=== PATIENT | female | born 1995 | race Caucasian/White ===

== ENCOUNTER 2016-08-21 21:00 | Emergency (ER) | payer OTHER ==
[2016-08-21 21:25] VITALS: BP 122/85; PULSE 109; TEMP 97.7; BMI 31.9
[2016-08-21] MEDS ORDERED: SODIUM CHLORIDE 1,000 ML IV STA (21:45)
[2016-08-21] MEDS ORDERED: OXYCODONE/APAP 5/325MG COMBO TABLET PO ONE ×2 (21:45→22:46)
--- NOTE | 2016-08-21 21:46 | PDOC ---
History of Present Illness - General History Source: Patient, Family Exam Limitations: No Limitations - History of Present Illness Initial Comments: 08/21/16 21:53 The patient is a 20 year old female with no significant past medical history who presents to the emergency department today complaining of shakes, body aches , hot and cold temperature swings, blurred vision, and cough. The patient states that she had a recent chest X-ray and was diagnosed with right sided pneumonia yesterday. The patient states that she has been shaking constantly for 4 days. The patient states that she begins to have a coughing bout any time she attempts to talk. The patient presents for further evaluation. The patient denies chest pain, or shortness of breath. The patient denies nausea, vomiting, and diarrhea. <Yasmany Perez - Last Filed: 08/21/16 21:53> <Neal Cooley - Last Filed: 08/21/16 22:26> - General Chief Complaint: Respiratory Stated Complaint: PNEUMONIA Time Seen by Provider: 08/21/16 21:43 Past History <Yasmany Perez - Last Filed: 08/21/16 21:53> - Immunization History Immunization Up to Date: Yes - Psycho/Social/Smoking Cessation Hx Anxiety: No Suicidal Ideation: No Smoking History: Never smoked Hx Alcohol Use: No Drug/Substance Use Hx: No Substance Use Type: None <Neal Cooley - Last Filed: 08/21/16 22:26> - Past Medical History Allergies/Adverse Reactions: Allergies Allergy/AdvReac Type Severity Reaction Status Date / Time No Known Allergies Allergy Verified 08/21/16 21:07 Home Medications: Ambulatory Orders Albuterol Sulfate Inhaler - [Ventolin Hfa Inhaler -] 2 inh PO Q4H PRN 08/21/16 Bupropion HCl [Wellbutrin Xl -] 450 mg PO DAILY 08/21/16 Clarithromycin [Biaxin -] 500 mg PO BID 08/21/16 Oxycodone HCl/Acetaminophen [Percocet 5-325 mg Tablet] 1 tab PO Q6H #20 tablet MDD 5 08/21/16 Prednisone PO DAILY 08/21/16 Review of Systems - Review of Systems Able to Perform ROS?: Yes Comments:: 08/21/16 21:54 GENERAL/CONSTITUTIONAL: (+)Chills, hot and cold temperature swings, shakes, weakness. HEAD, EYES, EARS, NOSE AND THROAT: (+)Blurred vision. No ear pain or discharge. No sore throat. CARDIOVASCULAR: No chest pain or shortness of breath. RESPIRATORY: (+) cough, wheezing, or hemoptysis. GASTROINTESTINAL: No nausea, vomiting, diarrhea or constipation. GENITOURINARY: No dysuria, frequency, or change in urination. MUSCULOSKELETAL: No joint or muscle swelling or pain. No neck or back pain. SKIN: No rash NEUROLOGIC: No headache, vertigo, loss of consciousness, or change in strength/ sensation. ENDOCRINE: No increased thirst. No abnormal weight change. HEMATOLOGIC/LYMPHATIC: No anemia, easy bleeding, or history of blood clots. ALLERGIC/IMMUNOLOGIC: No hives or skin allergy. <Yasmany Perez - Last Filed: 08/21/16 21:53> *Physical Exam - Vital Signs Last Vital Signs Temp Pulse Resp BP Pulse Ox 97.7 F 109 H 21 122/85 94 L 08/21/16 21:06 08/21/16 21:06 08/21/16 21:06 08/21/16 21:06 08/21/16 21:06 - Physical Exam Comments: 08/21/16 21:55 GENERAL: Awake, alert, and fully oriented, in no acute distress HEAD: No signs of trauma EYES: PERRLA, EOMI, sclera anicteric, conjunctiva clear ENT: Auricles normal inspection, hearing grossly normal, nares patent, oropharynx clear without exudates. Moist mucosa NECK: Normal ROM, supple, no lymphadenopathy, JVD, or masses LUNGS: Bronchi in the right base. HEART: Regular rate and rhythm, normal S1 and S2, no murmurs, rubs or gallops ABDOMEN: Soft, nontender, normoactive bowel sounds. No guarding, no rebound. No masses EXTREMITIES: Normal range of motion, no edema. No clubbing or cyanosis. No cords, erythema, or tenderness NEUROLOGICAL: Cranial nerves II through XII grossly intact. Normal speech, normal gait SKIN: Warm, Dry, normal turgor, no rashes or lesions noted. <Yasmany Perez - Last Filed: 08/21/16 21:53> - Vital Signs Last Vital Signs Temp Pulse Resp BP Pulse Ox 97.7 F 109 H 21 122/85 94 L 08/21/16 21:06 08/21/16 21:06 08/21/16 21:06 08/21/16 21:06 08/21/16 21:06 <Neal Cooley - Last Filed: 08/21/16 22:26> ED Treatment Course - Medications Given in the ED: ED Medications Discontinued Medications Generic Name Dose Route Start Last Admin Trade Name Giacomo PRN Reason Stop Dose Admin Oxycodone/Acetaminophen 1 combo 08/21/16 21:45 08/21/16 21:51 Percocet 5/325 - PO 08/21/16 21:46 1 combo ONCE ONE Administration <Yasmany Perez - Last Filed: 08/21/16 21:53> Medical Decision Making - Medical Decision Making 08/21/16 21:56 MDM: The patient will receive 1 liter of fluids with 1 percocet and be sent home with a percocet prescriptions for body aches. <Yasmany Perez - Last Filed: 08/21/16 21:53> *DC/Admit/Observation/Transfer - Attestations Scribe Attestion: 08/21/16 21:58 Documentation prepared by Yasmany Perez, acting as medical data analyst for Neal Cooley MD. <Yasmany Perez - Last Filed: 08/21/16 21:53> - Discharge Dispostion Admit: No - Attestations Physician Attestion: 08/21/16 21:44 I, Dr. Neal Cooley, attest that this document has been prepared under my direction and personally reviewed by me in its entirety. I further attest, that it accurately reflects all work, treatment, procedures and medical decision -making performed by me. <Neal Cooley - Last Filed: 08/21/16 22:26> Diagnosis at time of Disposition: Pneumonia Qualifiers: Aspiration pneumonia type: unspecified Laterality: left Lung location: lower lobe of lung - Discharge Dispostion Disposition: HOME Condition at time of disposition: Good - Prescriptions Prescriptions: Oxycodone HCl/Acetaminophen [Percocet 5-325 mg Tablet] 1 tab PO Q6H #20 tablet MDD 5 - Referrals Referrals: Abebe Burrows MD [Primary Care Provider] - - Patient Instructions Printed Discharge Instructions: DI for Pneumonia -- Adult Additional Instructions: Amy- You probably won't feel good until this weekend. You are on all the right medicines. Follow up with your doctor. Return to us if any problems. Best- Dr. Neal Cooley - Post Discharge Activity Work/School Note: Back to School
[2016-08-21] MEDS ORDERED: OXYCODONE/APAP 5/325MG COMBO TABLET ONE ×2 (21:48→22:49)
== END 2016-08-21 22:49 | disposition home or self-care (01) ==
LOC: FER 21:00
PROC: 3E0337Z Introduction of Electrolytic and Water Balance Substance into Peripheral Vein, Percutaneous Approach (ICD-10-PCS; principal; 2016-08-21)
DX: J18.9 Pneumonia, unspecified organism (principal)
CPT/HCPCS: 99282-25

== ENCOUNTER 2017-03-22 19:22 | Emergency (ER) | payer OTHER ==
--- NOTE | 2017-03-22 19:25 | PDOC ---
History of Present Illness - General History Source: Patient Exam Limitations: No Limitations - History of Present Illness Initial Comments: 03/22/17 20:07 The patient is an otherwise healthy 21 year old female who presents to the ED with complaints of abdominal pain since yesterday. Patient reports she woke up with upper quadrant pain yesterday morning. She reports the upper quadrant pain is a 7/10, constant, non radiating, and a dull-like sensation. She states she ate pasta the night before, but denies eating any new foods. Patient denies similar symptoms in the past. Denies recent travel. Denies nausea , vomiting, or diarrhea. Denies fever or chills. Denies chest pain or shortness of breath. PAST MEDICAL HISTORY: no significant history PAST SURGICAL HISTORY: no significant history FAMILY HISTORY: Mother has a history of gallbladder stones SOCIAL HISTORY: Pt lives with family and is employed. MEDICATIONS: reviewed ALLERGIES: As per nursing notes General: No fevers or chills, no weakness, no weight loss HEENT: No change in vision. No sore throat,. No ear pain CardioVascular: No chest pain or shortness of breath Respiratory:No cough, or wheezing. Gastrointestinal: + abdominal pain. no nausea, vomiting, diarrhea or constipation, No rectal bleeding Genitourinary: No dysuria, hematuria, or frequency Musculoskeletal: No joint or muscle pain or swelling Neurologic: No headache, vertigo, dizziness or loss of consciousness Psychiatric: nor depression Skin: No rashes or easy bruising Endocrine: no increased thirst or abnormal weight change Allergic: no skin or latex allergy All other systems reviewed and normal General: Well-nourished well-developed individual, no acute distress HEENT: Normal, tonsils normal, no erythema or exudate Neck: Supple, no meningeal signs, no lymphadenopathy Eyes::Pupils equal reactive and round, extraocular motion intact Chest: Nontender to palpation Cardiac: S1-S2 normal, regular rate and rhythm, no murmurs rubs or gallops Respiratory: Lungs clear to auscultation bilateral Abdomen: + mild to moderate epigastric and right upper quadrant tenderness, no boudreaux's sign. Soft, nondistended, normal bowel sounds, no guarding or rebound. Extremities: Warm, dry, no cyanosis, clubbing, or edema Skin: No rashes Neuro: Alert and oriented x3, nonfocal exam, grossly intact, normal gait Psych: Normal mood and affect <Christian Pak - Last Filed: 03/22/17 20:07> - General History Source: Patient Exam Limitations: No Limitations - History of Present Illness Initial Comments: 03/22/17 19:59 A portion of this note was documented by scribe services under my direction. I have reviewed the details of the note, within reason, and agree with the documentation. The case summary and management plan written by me. Medical decision making: This is a 21-year-old female comes in complaining of right upper quadrant and epigastric pain. Patient has a family history of gallstones otherwise denies history of gallstones herself but has never had a ultrasound. Patient denies any other associated symptoms of nausea vomiting diarrhea fever chills or similar pain in the past Will obtain CBC, comp, gallbladder ultrasound. Patient will given Pepcid and Toradol for the discomfort Will reassess 03/22/17 21:11 Reevaluation patient's symptoms are improved post Pepcid and Toradol. Ultrasound of patient's gallbladder was negative for stones or any acute pathology Patient's blood work came back normal Assessment and plan: This is a 21-year-old female with right upper quadrant/ epigastric pain differential includes a gastritis, viral etiology, a calculus gallbladder etiology. Discussed with patient possibly etiologies and the recommended patient take Tums or an antacid and also try to identify what food may be causing her symptoms. Patient does have a primary care doctor she can follow-up with. <Luis Prescott I - Last Filed: 03/22/17 21:14> - General Chief Complaint: Pain Stated Complaint: EPIGASTRIC PAIN AND "GURGLING" Time Seen by Provider: 03/22/17 19:25 Past History <Christian Pak - Last Filed: 03/22/17 20:07> - Immunization History Immunization Up to Date: Yes - Psycho/Social/Smoking Cessation Hx Anxiety: No Suicidal Ideation: No Smoking History: Never smoked Hx Alcohol Use: No Drug/Substance Use Hx: No Substance Use Type: None <Luis Prescott I - Last Filed: 03/22/17 21:14> - Past Medical History Allergies/Adverse Reactions: Allergies Allergy/AdvReac Type Severity Reaction Status Date / Time No Known Allergies Allergy Verified 03/22/17 19:49 Home Medications: Ambulatory Orders Bupropion HCl [Wellbutrin Xl -] 450 mg PO DAILY 08/21/16 *Physical Exam - Vital Signs Last Vital Signs Temp Pulse Resp BP Pulse Ox 98.2 F 88 18 100/77 99 03/22/17 19:24 03/22/17 19:24 03/22/17 19:24 03/22/17 19:24 03/22/17 19:24 <Christian Pak - Last Filed: 03/22/17 20:07> ED Treatment Course - LABORATORY CBC & Chemistry Diagram: 03/22/17 20:15 03/22/17 20:15 <Luis Prescott I - Last Filed: 03/22/17 21:14> *DC/Admit/Observation/Transfer - Attestations Scribe Attestion: 03/22/17 20:07 Documentation prepared by Christian Pak, acting as medical records analyst for Luis Prescott MD <Christian Pak - Last Filed: 03/22/17 20:07> - Discharge Dispostion Admit: No <Luis Presoctt I - Last Filed: 03/22/17 21:14> Diagnosis at time of Disposition: Epigastric pain - Discharge Dispostion Disposition: HOME Condition at time of disposition: Good - Patient Instructions Additional Instructions: Try to identify if there is any food that could be causing discomfort similar to what you're experiencing today and if so avoid those foods. In addition to that take an antacid for discomfort such as tums or Pepcid. Follow-up with your primary care doctor in 2-3 days if you still have persistent symptoms. Return to the emergency department immediately with ANY new, persistent or worsening symptoms. Continue any medications as previously prescribed by your physician.. . Please make sure your doctor reviews the results of your emergency evaluation. Thank you for coming to the Emergency Department today for your care. It was a pleasure to see you today. Please note that your evaluation is INCOMPLETE until you follow-up with your doctor.
[2017-03-22] MEDS ORDERED: FAMOTIDINE 20 MG/50 ML IVPB 50 ML IVPB ONE ×2 (19:52→20:18)
[2017-03-22] MEDS ORDERED: KETOROLAC TROMETHAMINE 30 MG/1 ML VIAL IVPUSH ONE (20:10)
[2017-03-22 20:13] VITALS: BP 100/77; PULSE 88; TEMP 98.2; BMI 27.7
[2017-03-22] MEDS ORDERED: KETOROLAC TROMETHAMINE 30 MG/1 ML VIAL ONE (20:18)
[2017-03-22 20:25] LABS: BASOPHIL 1.4 % (0-2.0); EOSINOPHIL 1.4 % (0-4.5); MCH 31.6 pg (25.7-33.7); MCHC 34.8 g/dl (32.0-36.0); MEAN CELL VOLUME 90.7 fl (80-96); MEAN PLT VOLUME 7.4 fl (7.5-11.1); PLATELET COUNT 222 K/MM3 (134-434); RDW 12.5 % (11.6-15.6); WHITE BLOOD COUNT 7.7 K/mm3 (4.0-10.8)
[2017-03-22 20:45] LABS: ALBUMIN 4.1 g/dl (3.5-5.0); ALK PHOS 46 U/L (32-92); ANION GAP 5 (8-16); BILIRUBIN,TOTAL 0.6 mg/dl (0.2-1.0); CALCIUM 9.2 mg/dl (8.4-10.2); CO2 28 mmol/L (22-28); CREATININE 0.8 mg/dl (0.6-1.3); GLUCOSE,RANDOM 92 mg/dl (74-106); SGOT/AST 12 U/L (10-42); SGPT/ALT 14 U/L (10-40); TOT PROT 6.5 g/dl (6.4-8.3)
== END 2017-03-22 21:19 | disposition home or self-care (01) ==
LOC: FER 19:22
PROC: 3E033GC Introduction of Other Therapeutic Substance into Peripheral Vein, Percutaneous Approach (ICD-10-PCS; principal; 2017-03-22)
PROC: 3E0333Z Introduction of Anti-inflammatory into Peripheral Vein, Percutaneous Approach (ICD-10-PCS; 2017-03-22)
DX: R10.13 Epigastric pain (principal)
CPT/HCPCS: 36415; 76705-TC; 80053; 83690; 85025; 99282-25

== ENCOUNTER 2018-01-02 10:51 | Emergency (ER) | payer OTHER ==
[2018-01-02 11:06] VITALS: BP 101/62; PULSE 91; TEMP 98.3; BMI 28.6
[2018-01-02] MEDS ORDERED: SODIUM CHLORIDE 1,000 ML IV STA ×2 (11:52)
--- NOTE | 2018-01-02 12:14 | PDOC ---
History of Present Illness - General Chief Complaint: Cold Symptoms Stated Complaint: SOB, LIGHTHEADED Time Seen by Provider: 01/02/18 11:28 History Source: Patient Exam Limitations: No Limitations - History of Present Illness Initial Comments: 01/02/18 12:00 22 y/o presents to ED with complaints of nasal congestion, frontal headache, sore throat, and body aches intimately for the past 5 days. Patient was given Augmentin by her doctor 2 days ago and states symptoms have not improved. Patient states is also taking Motrin for the headache with mild improvement. Patient states has had no recorded fever but has generalized myalgia. Patient denies recent travel, recent illness, previous ENT disorders, history of smoking , thyroid disorder, or difficulty breathing. Timing/Duration: reports: other (5 days) Severity: reports: mild, moderate Possible Cause: Yes: no prior episodes Associated Symptoms: reports: cough, fever/chills, headache (frontal), lightheadedness, nasal congestion, sinus infection, sore throat Past History - Travel Traveled outside of the country in the last 30 days: No - Past Medical History Allergies/Adverse Reactions: Allergies Allergy/AdvReac Type Severity Reaction Status Date / Time No Known Allergies Allergy Verified 01/02/18 11:00 Home Medications: Ambulatory Orders Bupropion HCl [Wellbutrin Xl -] 450 mg PO DAILY 08/21/16 CVA: No COPD: No Psychiatric Problems: Yes (depression) - Immunization History Immunization Up to Date: Yes - Suicide/Smoking/Psychosocial Hx Smoking History: Never smoked Have you smoked in the past 12 months: No Information on smoking cessation initiated: No Hx Alcohol Use: No Drug/Substance Use Hx: No Substance Use Type: None Patient Lives Alone: No Lives with/in: parents Review of Systems - Review of Systems Able to Perform ROS?: No Constitutional: Yes: Chills, Weakness HEENTM: Yes: Nose Congestion, Throat Pain Respiratory: Yes: Cough Cardiac (ROS): No: Symptoms Reported ABD/GI: No: Symptoms Reported : No: Symptoms Reported Musculoskeletal: No: Symptoms Reported Integumentary: No: Symptoms Reported Neurological: Yes: Headache *Physical Exam - Vital Signs Last Vital Signs Temp Pulse Resp BP Pulse Ox 98.3 F 91 H 20 101/62 98 01/02/18 11:01 01/02/18 11:01 01/02/18 11:01 01/02/18 11:01 01/02/18 11:01 - Physical Exam General Appearance: Yes: Nourished, Appropriately Dressed. No: Apparent Distress HEENT: positive: EOMI, KAYE, TMs Normal, Pharynx Normal, Sinus Tenderness ( frontal and maxillary). negative: Pale Conjunctivae Neck: positive: Normal Thyroid, Supple Respiratory/Chest: positive: Lungs Clear, Normal Breath Sounds. negative: Respiratory Distress, Accessory Muscle Use Cardiovascular: positive: Regular Rhythm, Regular Rate. negative: Murmur Integumentary: positive: Normal Color, Warm, Moist Neurologic: positive: Motor Strength 5/5 (ambulatory) Medical Decision Making - Medical Decision Making 01/02/18 12:16 Pt with URI symptoms for the past 5 days unrelieved with Augmentin for the past 2 days or Motrin. Patient on exam had frontal or maxillary tenderness with subjective complaints of frontal pressure 1 placing her head between her legs. Patient appears slightly dehydrated. Patient with 2 L of fluid and will be discharged home with Claritin, Flonase and robitussin ac 01/02/18 13:30 Pt states feeling better. Patient will be discharged home with rx forRobitussin with Flonase and Claritin. *DC/Admit/Observation/Transfer Diagnosis at time of Disposition: Sinusitis Qualifiers: Sinusitis location: frontal Chronicity: acute Recurrence: non-recurrent Qualified Code(s): J01.10 - Acute frontal sinusitis, unspecified - Discharge Dispostion Disposition: HOME - Referrals Referrals: ON STAFF,NOT [Primary Care Provider] - - Patient Instructions Printed Discharge Instructions: DI for Sinusitis Additional Instructions: Take medication as prescribed. May take Tylenol extra strength as needed for headache. Drink plenty of fluids - Post Discharge Activity
== END 2018-01-02 13:44 | disposition home or self-care (01) ==
LOC: JERFT 10:51
PROC: 3E0337Z Introduction of Electrolytic and Water Balance Substance into Peripheral Vein, Percutaneous Approach (ICD-10-PCS; principal; 2018-01-02)
DX: J01.10 Acute frontal sinusitis, unspecified (principal); F32.9 Major depressive disorder, single episode, unspecified
CPT/HCPCS: 99281-25; J7030